=== PATIENT | male | born 1980 | race African-American/Black ===

== ENCOUNTER 2022-08-08 11:01 | Outpatient (CLI) | payer OTHER ==
--- NOTE | 2022-08-08 11:40 | CARDIAC PROCEDURE NOTE ---
Stress Test Report Service Date: 08/08/22 Service Time: 11:00 Indication for Test: Assess atypical chest pain and palpitations Significant Medical History: Indu presents for an exercise tolerance today; a few weeks ago he experienced an episode of sharp substernal chest pain that awoke him from sleep and was associated with palpitations. The pain resolved fully in about 6 minutes and there was no associated diaphoresis, nausea, vomiting or dyspnea. Since then he has had rare episodes of transient sharp chest pain and intermittent episodes of palpitations, never associated with lightheadedness and typically lasting seconds to about a minute. Typically the sharp chest pains and palpitations are separate phenomena, though sometimes they occur together. He is very fit and has been running 6 miles daily, feeling well doing so, though he has reduced the intensity of his runs while awaiting the current work-up. He is also scheduled to undergo ambulatory rhythm monitoring and a full diagnostic echocardiogram as well as formal Cardiology consultation. Cardiac Risk Factors: Positive family history of CAD in mother (reported "heart attack" in early 50's, no intervention); no known history of hypertension, diabetes or tobacco smoking. No lipid data available. Type of Stress Test: Exercise Treadmill Test (ETT) Procedure: -Exercise Treadmill Test- After signing informed consent, the patient performed treadmill exercise using a Andrea protocol. The patient exercised for 16 minutes 3 seconds and achieved a peak heart rate of 164 (93 percent predicted maximum heart rate for age); estimated MET workload not available due to computer glitch. The test was terminated due to fatigue/shortness of breath. Resting heart rate: 71 Peak heart rate: 164 Normal response to exercise. Resting BP: 117/75 Peak BP: 251/41 Robust, though likely normal response of both systolic and diastolic BP to exercise. Rhythm during exercise: Sinus rhythm throughout. Symptoms: He denied chest discomfort or palpitations. EKG at rest showed normal sinus rhythm with first-degree AV block (MI interval 267 ms) with left atrial abnormality and generalized ST elevation most consistent with normal variant early repolarization pattern. EKG at peak stress showed no ischemia by EKG criteria. In Recovery heart rate and blood pressure rapidly/normally returned to baseline levels (BP 144/66 at 4 minutes). No imaging was ordered with this stress test. Preston Chambers MD, was present throughout this treadmill stress study and supervised it in its entirety. Summary: 1) Exercise tolerance well above average for age and sex as evidenced by estimated SERA of >-30%. 2) Abnormal resting EKG (though with interpretable ST segments). 3) Adequate level of exercise was achieved on this treadmill stress test. 4) Robust though probably normal SBP increase and normal DBP decrease with exercise. 5) No ischemic changes by EKG criteria were seen at peak stress. 6) No imaging was ordered with this test. Conclusions and Recommendations: 1) Picture consistent with patient's fit self-description, with no suggestion by symptoms or EKG of inducible ischemia. 2) Patient was encouraged to follow through with ambulatory rhythm monitoring, diagnostic echocardiogram and formal evaluation with Cardiology, given the ongoing and vexing nature of his palpitations.
== END 2022-08-08 11:02 | disposition home or self-care (01) ==
LOC: DI 11:01
PROVIDERS: ATTEND Physician Assistant
DX: R07.9 Chest pain, unspecified (principal); R00.2 Palpitations; I44.0 Atrioventricular block, first degree; Z82.49 Family history of ischemic heart disease and other diseases of the circulatory system
CPT/HCPCS: 93017

== ENCOUNTER 2023-08-24 16:51 | Outpatient (CLI) | payer OTHER ==
--- NOTE | 2023-08-27 20:03 | MRI Report ---
PROCEDURE: Cervical Spine WO INDICATIONS: SHOULDER PAIN TECHNIQUE: Noncontrast sagittal T1 spin echo and T2 fast spin echo, sagittal STIR, foraminal oblique sagittal T2 fast spin echo, and axial gradient echo or T2 fast spin echo through the cervical spine. COMPARISON: None. FINDINGS: Image quality: Excellent. Alignment and Curvature: There is normal bony alignment. Bone Marrow: Marrow demonstrates normal overall signal. Spinal Cord: Visualized spinal cord has normal size and signal. No cerebellar tonsillar herniation. Paraspinous Soft Tissues: No paravertebral masses. Prevertebral soft tissues are normal in thicknes s. C2-C3: Minimal posterior disc ossify complex. No central canal or neuroforaminal stenosis. C3-C4: Disc desiccation and mild height loss. Mild posterior disc osteophyte complex. No significan t central canal stenosis. Facet and uncovertebral arthropathy. Mild right and no significant left renee roforaminal stenosis. C4-C5: Disc desiccation and minimal posterior disc ossify complex. No significant central canal sten osis. Facet and uncovertebral arthropathy. Moderate bilateral neuroforaminal stenosis. C5-C6: Disc desiccation and mild posterior disc osteophyte complex. No significant central canal oswaldo nosis. Facet and uncovertebral arthropathy. Severe bilateral neuroforaminal stenosis. C6-C7: Disc desiccation and mild posterior disc ossify complex. Facet and uncovertebral arthropathy. No significant central canal stenosis. Moderate bilateral neuroforaminal stenosis. C7-T1: Disc desiccation and mild posterior disc osteophyte complex. No central canal stenosis. Facet and uncovertebral arthropathy. Mild left and no right neuroforaminal stenosis. IMPRESSION: 1.Multilevel degenerative changes of the cervical spine as described above. 2.No significant central canal stenosis. 3.Severe bilateral neuroforaminal stenosis at C5-C6. Moderate bilateral neuroforaminal stenosis at C4 -C5 and C6-C7. Reviewed by: Richi Colorado MD on 08/27/2023 7:01 PM [facility] Approved by: Richi Colorado MD on 08/27/2023 7:01 PM [facility] Station ID: [id number]
== END 2023-08-24 16:52 | disposition home or self-care (01) ==
LOC: DI 16:51
PROVIDERS: ATTEND Family Medicine
DX: M50.81 Other cervical disc disorders, high cervical region (principal); M50.83 Other cervical disc disorders, cervicothoracic region; M50.821 Other cervical disc disorders at C4-C5 level; M48.02 Spinal stenosis, cervical region; M47.812 Spondylosis without myelopathy or radiculopathy, cervical region